=== PATIENT | male | born 1950 | race Hispanic/Latino ===

== ENCOUNTER → 2024-12-07 | Outpatient (CLI) | payer MEDICARE | END | disposition home or self-care (01) | LOC: SHCH 09:54 | PROVIDERS: ATTEND Internal Medicine Cardiovascular Disease | DX: I08.8 Other rheumatic multiple valve diseases (principal); I21.3 ST elevation (STEMI) myocardial infarction of unspecified site | CPT/HCPCS: 93306 ==